=== PATIENT | female | born 1990 | race Caucasian/White ===

== ENCOUNTER 2019-04-03 09:24 | Day surgery (SDC) | payer OTHER ==
[2019-03-27 16:48] VITALS: BMI 31.6
[2019-03-27 17:02] LABS: Hemoglobin 14.9 g/dL (12.0-16.0); Mean Corpuscular HGB CONC 32.8 g/dL (32.0-36.0); Mean Corpuscular Hemoglobin 30.4 pg (27.0-31.0); Mean Corpuscular Volume 92.7 fL (78.0-98.0); Mean Platelet Volume 9.5 fL (7.4-10.4); Platelet Count 222 thou/uL (130-400); RBC Distribution Width 11.8 % (11.5-14.5); Red Blood Cell (RBC) Count 4.92 mill/uL (4.20-5.40); White Blood Cell (WBC) Count 8.5 thou/uL (4.8-10.8)
[2019-03-27 17:04] LABS: BHCG - Serum Negative (NEGATIVE); Pregs Control Background? CLEAR/WHITE (CLR/WHITE); Pregs Control Bar Appear? YES (CONTROL BAR)
--- NOTE | 2019-04-02 09:52 | HP ---
REASON FOR ADMISSION: Persistent large simple right adnexal cyst. SCHEDULED PROCEDURE: Laparoscopic right partial oophorectomy with cyst removal with Da Eugene robot assist. HISTORY OF PRESENT ILLNESS: Ms. Carrero is a 28-year-old G0, seen by Yusra Snyder in my office back in early January. The patient was noted to have pain and fullness in the right side of the pelvis. An ultrasound revealed a 7 cm simple ovarian cyst. No evidence of torsion was noted. No excrescences. No signs or symptoms worrisome for malignancy were noted. Discussed with the patient options and the patient decided to proceed with surgery. The patient was seen last week and ultrasound was repeated which showed persistence of the cyst on that side without change in size, free fluid, the presence of excrescences, or other worrisome symptoms. The patient desires surgical management. 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 . No STD history. The patient uses Liletta for contraceptive. MEDICAL HISTORY: Denies. SURGICAL HISTORY: Denies. ALLERGIES: NONE. MEDICATIONS: 1. Ibuprofen. 2. Liletta. 3. Raglan. 4. Topiramate. SOCIAL HISTORY: Denies tobacco, alcohol, or IV drug abuse. FAMILY HISTORY: Noncontributory. REVIEW OF SYSTEMS: Noncontributory. PHYSICAL EXAMINATION: GENERAL: White female. VITAL SIGNS: Height 5 feet 4 inches, weight 185, BMI 32, blood pressure 140/72, pulse 85, respirations 18. HEENT: Within normal limits. LUNGS: Clear to auscultation bilaterally. HEART: Regular rate and rhythm. BREASTS: No masses bilaterally. ABDOMEN: Soft and nontender with discomfort in the right lower quadrant on palpation. : Vulva without lesions. Vagina without discharge. Cervix, nulliparous. Uterus, anteverted, small. Adnexa, no masses bilaterally except for appreciated fullness on the patient's right. IMAGING STUDIES: Ultrasound confirms persistent presence of 6-8 cm simple right adnexal mass. This may be paratubal or paraovarian. IMPRESSION: Persistent cyst on the right adnexa with pain, desiring definitive surgical management. Low risk for malignancy. PLAN: Discussed with the patient options. We will proceed with laparoscopic removal of the cyst with Da Eugene. Anticipate draining the cyst intra-abdominally and then proceeding with cyst removal with preservation of the rest of the right adnexa and tubal preservation if possible. The patient understands risks and benefits of procedure. Job ID: [id number]
[2019-04-03] MEDS ORDERED: Famotidine/PF 20 mg/2ml Vial ONE (10:05)
[2019-04-03] MEDS ORDERED: Gabapentin 300 MG CAP ONE (10:05)
[2019-04-03] MEDS ORDERED: CeleCOXIB 100 MG CAP ONE (10:05)
[2019-04-03] MEDS ORDERED: Fentanyl 250 MCG/5 ML VIAL ONE (11:01)
[2019-04-03] MEDS ORDERED: Bupivacaine HCl 0.5%/Epinephrine 1:200,000/PF 30 ml Vial ONE (11:02)
[2019-04-03] MEDS ORDERED: Midazolam HCl 2 mg/2 ml Vial ONE (11:21)
[2019-04-03] MEDS ORDERED: Fentanyl 100 MCG/2 ML VIAL ONE (12:39)
[2019-04-03] MEDS ORDERED: HYDROcodone/Acetaminophen 5/325 mg Tablet ONE (15:22)
--- NOTE | 2019-04-03 15:30 | OP ---
DATE OF PROCEDURE: 04/03/2019 PREOPERATIVE DIAGNOSES: Chronic pelvic pain, 6 to 8 cm right ovarian simple cyst follow up for three months and confirmed presence on ultrasound one week ago. POSTOPERATIVE DIAGNOSES: Chronic pelvic pain, 6 to 8 cm right ovarian simple cyst follow up for three months and confirmed presence on ultrasound one week ago and spontaneous resolution of right ovarian cyst. PROCEDURE PERFORMED: Diagnostic laparoscopy. PAUNCH TRIMMER: Danyelle Shah PA-C ANESTHESIA: General endotracheal. ESTIMATED BLOOD LOSS: Less than 5 mL. COMPLICATIONS: None. FINDINGS: 1. Normal-appearing uterus, tubes, and bilateral ovaries without any evidence of 6 cm cyst. 2. Normal-appearing ureters bilaterally. 3. Normal-appearing colon. 4. Normal-appearing appendix. DISPOSITION: Recovery room in good condition. INDICATIONS FOR PROCEDURE: The patient had been followed in my office for several months with right lower quadrant pain and a 6 to 8 cm simple cyst without excrescences. It was felt to be likely ovarian in nature, but was considered of to be possible paratubal. The patient had been seen approximately one week ago in the office for preop and vaginal ultrasound at bedside confirmed the presence of the cyst. The patient visualized this on the ultrasound machine as well with her spouse. DESCRIPTION OF PROCEDURE: The patient was taken to the operating room and general anesthesia was achieved without difficulty. She was prepped and draped in dorsal lithotomy. Sliding speculum was placed in the vagina. Cervix identified. Bilateral IUD string was identified as well. Decision was made because of the IUD placement to just place a double toothed tenaculum on the cervix rather than the Hulka manipulator. The tenaculum and speculum were removed. 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 A 5 mL of Marcaine injected at the base of the umbilicus and left lateral, lateral to the epigastric vessels. An 8 mm incision made at the base of the umbilicus and the Veress needle placed in the abdominal cavity, insufflation was carried out with carbon dioxide for a maximum pressure 15, volume approximately 3.5 L. An 8 mm da Eugene trocar was placed without difficulty with confirmation entry into the peritoneal cavity. Left lateral 8 mm da Eugene port was placed without difficulty under direct visualization. The patient was placed in steep Trendelenburg position and pelvic organs mobilized. Findings as noted in the operative findings were noted. The ovary on the right side was within normal limits with appearance of two or three small gluteal follicles on the posterior aspect of the ovary, but no cyst. No cyst lost from the ovary or deflated paratubal cyst was identified. No other pathology was able to be identified in the pelvis that would have caused the appearance of a cystic like structure on ultrasound. Normal left adnexa was noted. Normal sacral region, colon, ureters, cecum, and appendix were noted as well. At this point in time, the case was terminated. The abdomen deflated with carbon dioxide. Trocars removed x2. Skin was reapproximated using 4-0 Monocryl with Dermabond and the single-tooth tenaculum removed from the cervix. The patient awakened and extubated, taken to recovery room in good condition. Photo documentation obtained. Job ID: [id number]
[2019-04-03] MEDS ORDERED: PROPOFOL 200 MG/20 ML VIAL ONE (16:54)
[2019-04-03] MEDS ORDERED: Ondansetron PF 4 MG/2 ML Vial ONE (16:54)
[2019-04-03] MEDS ORDERED: Rocuronium Bromide 10 MG/ML (10ML VIAL) ONE (16:54)
[2019-04-03] MEDS ORDERED: Lidocaine 1% PF 5 ML VIAL ONE (16:54)
[2019-04-03] MEDS ORDERED: Dexamethasone 20 MG/5 ML VIAL ONE (16:54)
[2019-04-03] MEDS ORDERED: Glycopyrrolate 0.2 MG/ML 5 ML SYRINGE ONE (16:54)
== END 2019-04-03 15:50 | disposition home or self-care (01) ==
LOC: SDC 09:24
PROVIDERS: ATTEND Obstetrics & Gynecology
PROC: 0UJ34ZZ Inspection of Ovary, Percutaneous Endoscopic Approach (ICD-10-PCS; principal; 2019-04-03)
DX: R10.2 Pelvic and perineal pain (principal); G89.29 Other chronic pain; G43.909 Migraine, unspecified, not intractable, without status migrainosus; Z79.1 Long term (current) use of non-steroidal anti-inflammatories (NSAID); Z79.899 Other long term (current) drug therapy
CPT/HCPCS: 36415; 84703; 85027; 86850; 86900; 86901; J0670; J0690; J1100; J2001; J2250; J2405; J2704; J3010; Q9968; S0028